=== PATIENT | male | born 1950 | race Caucasian/White ===

== ENCOUNTER 2016-11-23 09:48 | Outpatient (CLI) | payer MEDICARE ==
--- NOTE | 2016-11-23 10:44 | XRAY Report ---
TWO-VIEW CHEST: 11/23/2016 CLINICAL INDICATION: Cough, dark phlegm. FINDINGS: Frontal and lateral views of the chest demonstrate a normal cardiac silhouette. The lungs are clear. No effusion or pneumothorax is present. IMPRESSION: NO EVIDENCE OF ACUTE CARDIOPULMONARY DISEASE. JOB #: [id number] EXT JOB #:[id number]
== END 2016-11-23 09:49 | disposition home or self-care (01) ==
LOC: DI 09:48
PROVIDERS: ATTEND Nurse Practitioner Family
DX: R05 Cough (principal)
CPT/HCPCS: 71020

== ENCOUNTER 2016-11-23 14:51 | Outpatient (CLI) | payer OTHER, MEDICARE ==
--- NOTE | 2016-11-24 12:11 | XRAY Report ---
THREE-VIEW LEFT SHOULDER: 11/23/2016 CLINICAL INDICATION: Pain. FINDINGS: Internal and external rotational views and a scapular Y view of the left shoulder demonstr ate no evidence of fracture or dislocation. The joint spaces are preserved. No radiopaque foreign b delmar is seen in the soft tissues. IMPRESSION: NORMAL LEFT SHOULDER. JOB #: [id number] EXT JOB #:[id number]
--- NOTE | 2016-11-24 12:12 | XRAY Report ---
THREE-VIEW LEFT KNEE: 11/23/2016 CLINICAL INDICATION: Pain, history of MCL replacement. FINDINGS: Frontal and lateral and sunrise views of the left knee demonstrate no evidence of acute fr acture or dislocation. Mild osteoarthritis is present, with chondrocalcinosis. Postoperative change s of ACL replacement are noted. A small effusion is present. IMPRESSION: PREVIOUS ACL REPLACEMENT. SMALL EFFUSION, WITH MILD OSTEOARTHRITIS. JOB #: [id number] EXT JOB #:[id number]
== END 2016-11-23 14:52 | disposition home or self-care (01) ==
LOC: DI 14:51
PROVIDERS: ATTEND Physician Assistant
DX: M17.12 Unilateral primary osteoarthritis, left knee (principal); M25.512 Pain in left shoulder; M25.462 Effusion, left knee

== ENCOUNTER 2016-12-18 07:56 | Emergency (ER) | payer OTHER, MEDICARE ==
[2016-12-18 08:06] VITALS: BP 117/64
[2016-12-18 08:55] LABS: CALCIUM 9.3 mg/dL (8.5-10.3); CREATININE 0.8 mg/dL (0.6-1.2); POTASSIUM 4.1 mmol/L (3.5-5.0)
--- NOTE | 2016-12-18 09:02 | ED Physician Documentation ---
History of Present Illness - Stated complaint Stated Complaint: LAB RESULT - Chief complaint Chief Complaint: General - History obtained from History obtained from: Patient - History of Present Illness Timing: How many days ago (he had routine outpatient labs done for evelauation for MRI of knee and shoulder. This was drawn 3 days ago. Results back to PCP and showed elevated Potassium level greater than 10 and so she called the patient to get recheck on these lab tests.) Severity Comments: He has the shoulder and knee pain he has been having. No other symptoms Associated symptoms: No weakness, numbness, palpitations, lightheadedness, dyspnea. Review of Systems Constitutional: denies: Fever, Chills Nose: denies: Rhinorrhea / runny nose, Congestion Throat: denies: Sore throat Cardiac: denies: Chest pain / pressure, Palpitations Respiratory: denies: Dyspnea, Cough GI: denies: Nausea, Vomiting, Diarrhea Neurologic: denies: Focal weakness, Numbness, Near syncope PD PAST MEDICAL HISTORY - Past Surgical History Past Surgical History: Yes Ortho: ACL reconstruction, Other - Present Medications Home Medications: Ambulatory Orders Medication Instructions Recorded Confirmed Acyclovir 200 mg PO DAILY 01/09/14 12/18/16 Ibuprofen [Motrin] 400 mg PO Q6H PRN #30 tablet 01/09/14 12/18/16 - Allergies Allergies/Adverse Reactions: Allergies Allergy/AdvReac Type Severity Reaction Status Date / Time No Known Drug Allergies Allergy Verified 12/18/16 08:05 - Social History Does the pt smoke?: No Smoking Status: Never smoker Does the pt drink ETOH?: No Does the pt have substance abuse?: No - Immunizations Immunizations are current?: No Immunizations: TDAP >10years/unknown - POLST Patient has POLST: No PD ED PE NORMAL - Vitals Vital signs reviewed: Yes - General General: Alert and oriented X 3, No acute distress, Well developed/nourished - Neck Neck: Supple, no meningeal sign, No adenopathy - Cardiac Cardiac: RRR, No murmur - Respiratory Respiratory: Clear bilaterally - Extremities Extremities: No tenderness to palpate, Normal ROM s pain, No edema, No calf tenderness / cord Results - Vitals Vitals: Vital Signs - 24 hr 12/18/16 08:02 Temperature 36.4 C L Heart Rate 91 Respiratory 16 Rate Blood Pressure 117/64 O2 Saturation 97 Oxygen O2 Source Room air - Labs Labs: Laboratory Tests 12/18/16 08:41 Sodium 139 Potassium 4.1 Chloride 102 Carbon Dioxide 26 Anion Gap 11.0 BUN 18 Creatinine 0.8 Estimated GFR (MDRD) 96 Glucose 112 H Calcium 9.3 PD MEDICAL DECISION MAKING - ED course Complexity details: reviewed results, considered differential (recent outpatient lab test showing normal creatinine and potassium level greater than 10. Obvious abnormal. Rechecked today and is normal level. ) Departure - Departure Disposition: 01 Home, Self Care Clinical Impression: Abnormal laboratory test result Clinical Impression: (Ruled Out): Hyperkalemia Condition: Stable Record reviewed to determine appropriate education?: Yes Follow-Up: Miguelina Lau PA [Primary Care Provider] - Comments: Usual fluids, diet, activity. Your potassium level is normal on repeat testing today. Presume was some hemolysis in the blood test tube on the recent lab test that caused false elevation. Discharge Date/Time: 12/18/16 09:10
== END 2016-12-18 09:10 | disposition home or self-care (01) ==
LOC: ED 07:56
DX: R79.9 Abnormal finding of blood chemistry, unspecified (principal)
CPT/HCPCS: 36415; 80048; 99282; 99283

== ENCOUNTER 2019-10-15 12:50 | Emergency (ER) | payer OTHER, MEDICARE ==
--- NOTE | 2019-10-15 13:54 | ED Physician Documentation ---
PD HPI UPPER EXT INJURY - Stated complaint Stated Complaint: RT SHOULDER INJ - Chief complaint Chief Complaint: Ext Problem - History obtained from History obtained from: Patient - History of Present Illness Location: Right, Shoulder Where injury occurred: Work Timing - onset: How many days ago (1) Timing - duration: Days (1) Timing - details: Gradual onset Pain level max: 6 Pain level now: 5 Improved by: Rest Worsened by: Moving, Palpating Associated symptoms: No: Weakness, Numbness, Tingling, Swelling Contributing factors: No: Anticoagulated, Prior ortho surgery Similar symptoms before: Has not had sx before Recently seen: Not recently seen - Additonal information Additional information: 69-year-old male presents to the emergency department with right shoulder pain. States worse with movement and better with rest. 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 Initially did not have much pain but is gradually worsened throughout the day. Has not taken anything for pain. No numbness or tingling. No other injuries. Patient is right-handed Review of Systems Constitutional: denies: Fever, Chills GI: denies: Vomiting Musculoskeletal: denies: Neck pain, Back pain Neurologic: denies: Focal weakness, Numbness, Headache, Head injury PD PAST MEDICAL HISTORY - Past Medical History Past Medical History: No Cardiovascular: None Respiratory: None Neuro: None Endocrine/Autoimmune: None GI: None : None HEENT: None Psych: None Musculoskeletal: None Derm: Herpes zoster - Past Surgical History Past Surgical History: Yes Ortho: ACL reconstruction, Rotator cuff repair, Other - Present Medications Home Medications: Ambulatory Orders Medication Instructions Recorded Confirmed Acyclovir 200 mg PO DAILY 01/09/14 12/18/16 Ibuprofen [Motrin] 400 mg PO Q6H PRN #30 tablet 01/09/14 12/18/16 - Allergies Allergies/Adverse Reactions: Allergies Allergy/AdvReac Type Severity Reaction Status Date / Time No Known Drug Allergies Allergy Verified 12/18/16 08:05 - Social History Does the pt smoke?: No Smoking Status: Never smoker Does the pt drink ETOH?: Yes ETOH Use: Wine Does the pt have substance abuse?: No Substance Use and Type: Marijuana - Immunizations Immunizations are current?: Yes Immunizations: TDAP >10years/unknown - POLST Patient has POLST: No PD ED PE NORMAL - Vitals Vital signs reviewed: Yes - General General: Alert and oriented X 3, No acute distress - HEENT HEENT: Moist mucous membranes - Neck Neck: Supple, no meningeal sign - Cardiac Cardiac: RRR - Respiratory Respiratory: No respiratory distress, Clear bilaterally - Derm Derm: Warm and dry - Extremities Extremities: Other (Mild tenderness to palpation over the right shoulder. No gross deformity. Neurovascular intact. Axillary nerve intact. Mild pain with range of motion. Most of the pain is with abduction above 90 degrees.) - Neuro Neuro: Alert and oriented X 3 - Psych Psych: Normal mood, Normal affect Results - Vitals Vitals: Vital Signs - 24 hr 10/15/19 10/15/19 10/15/19 13:34 13:45 15:26 Temperature 36.7 C 36.7 C Heart Rate 82 82 88 Respiratory 16 16 16 Rate Blood Pressure 131/72 H 131/72 H 134/67 H O2 Saturation 98 98 99 Oxygen O2 Source Room air - Rads (name of study) Right shoulder x-ray Radiology: Prelim report reviewed, EMP read contemporaneously, See rad report PD MEDICAL DECISION MAKING - ED course Complexity details: reviewed results, re-evaluated patient, considered differential, d/w patient ED course: No acute abnormalities on the right shoulder x-ray. Patient is using the arm well. Declines any pain medication here for home. Patient will follow-up with orthopedics for repeat evaluation. L&I paperwork filled out. Patient counseled regarding signs and symptoms for which I believe and urgent re-evaluation would be necessary. Patient with good understanding of and agreement to plan and is comfortable going home at this time This document was made in part using voice recognition software. While efforts are made to proofread this document, sound alike and grammatical errors may occur. Departure - Departure Disposition: 01 Home, Self Care Clinical Impression: Sprain of shoulder, right Qualifiers: Encounter type: initial encounter Shoulder sprain type: unspecified sprain Qualified Code(s): S43.401A - Unspecified sprain of right shoulder joint, initial encounter Condition: Good Instructions: ED Sprain Shoulder Follow-Up: Yobani Valle MD [Primary Care Provider] - Within 1 week [facility] [Provider Group] - Within 1 week Comments: Your x-ray does not show any acute abnormalities today. Follow-up with your doctor within a week for a recheck. They may want to perform an MRI or refer you to physical therapy if you are continuing to have pain. You can use Motrin or Tylenol as needed for pain. Continue to gently stretch the shoulder. Discharge Date/Time: 10/15/19 15:26
--- NOTE | 2019-10-15 14:40 | XRAY Report ---
PROCEDURE: Shoulder 3 View RT INDICATIONS: fall, R shoulder pain TECHNIQUE: 3 views of the shoulder were acquired. COMPARISON: Correlation is made with chest x-ray 11/23/2016 FINDINGS: Bones: No fractures or dislocations. No suspicious bony lesions. Visualized ribs appear intact. M ild degenerative changes are seen, including mild subacromial spurring. Soft tissues: No suspicious soft tissue calcifications. The visualized lung demonstrates a normal a ppearance. IMPRESSION: No displaced fractures are seen on this plain film. In this patient with a given history of trauma, please correlate with focal tenderness. If clinically appropriate, please consider a short-term follow-up plain films series versus a dedicated CT study. Age-appropriate degenerative changes are seen. Reviewed by: Kurtis Sutherland MD on 10/15/2019 1:39 PM MARKELL Approved by: Kurtis Sutherland MD on 10/15/2019 1:39 PM MARKELL Station ID: [id number]
[2019-10-15 15:27] VITALS: BP 134/67
== END 2019-10-15 15:26 | disposition home or self-care (01) ==
LOC: ED 12:50
DX: S43.401A Unspecified sprain of right shoulder joint, initial encounter (principal); W18.09XA Striking against other object with subsequent fall, initial encounter; X50.1XXA Overexertion from prolonged static or awkward postures, initial encounter; Y93.01 Activity, walking, marching and hiking; Y99.0 Civilian activity done for income or pay
CPT/HCPCS: 99282; 99283